=== PATIENT | female | born 1960 | race Caucasian/White ===

== ENCOUNTER 2019-08-15 07:48 | Inpatient (IN) | payer OTHER ==
[2019-08-08 12:37] LABS: BASOPHILS % (AUTO) 0.7 % (0.0-2.0); HEMATOCRIT 36.8 % (36-46); LYMPHOCYTES # (AUTO) 3.1 K/uL (1.0-4.8); LYMPHOCYTES % (AUTO) 45.5 % (22.0-44.0); MEAN CORPUSCULAR HGB CONC 32.7 G/dL (31.0-37.0); MEAN CORPUSCULAR VOLUME 79 fL (80-100); MONOCYTES # (AUTO) 0.4 K/uL (0.1-1.0); MONOCYTES % (AUTO) 6.2 % (2.0-9.0); NEUTROPHILS # (AUTO) 3.1 K/uL (1.8-7.7); NEUTROPHILS % (AUTO) 44.6 % (40.0-70.0); PLATELET COUNT (AUTO) 393 K/uL (150-450); RED BLOOD CELL COUNT(AUTO) 4.64 MIL/uL (4.00-5.20); RED CELL DISTRIBUTION WIDTH 14.5 % (11.5-14.5)
[2019-08-08 12:45] LABS: PROTHROMBIN TIME 9.7 SEC (9.4-11.6)
[2019-08-08 12:48] LABS: CALCIUM, TOTAL 8.9 mg/dL (8.8-10.5); CREATININE 1.02 mg/dL (0.60-1.30); POTASSIUM 3.1 mmol/L (3.5-5.1)
[2019-08-08 13:00] LABS: ALBUMIN 3.6 g/dL (3.4-5.0); BILIRUBIN,TOTAL 0.5 mg/dL (0.1-1.0); TOTAL PROTEIN, SERUM 7.2 g/dL (6.4-8.2)
[2019-08-08 13:51] LABS: HEMOGLOBIN A1C 6.9 % (4.5-6.2)
[~2019-08-15] VITALS: Ht 170.2 cm; Wt 101.4 kg
[~2019-08-15 07:48] MED LIST: ASPI81 PO; ATOR10TA84 PO; CETI10TA59 PO; DULO20CA30 PO; ESTR-95 PO; EXEN2AUT SQ; HYDR25TA PO; INSNOV SQ; INSNPH SQ; LISI-662 PO; METF500T20 PO; NITR0.4T52 SL; NORT25 PO; OXYB5 PO; PANT40TA25 PO; RINGERS SOLUTION,LACTATED 1,000 ML IV ONE; RIZA10TA27 PO; SUCR1TAB PO
[2019-08-15] MEDS ORDERED: RINGERS SOLUTION,LACTATED 1,000 ML IV ONE ×2 (08:00→11:09)
[2019-08-15 08:40] LABS: GLUCOMETER DEV NAME(LOC) SDS.; GLUCOSE,POINT OF CARE 123 MG/DL (70-110)
[2019-08-15] MEDS ORDERED: BACITRACIN 50,000 UNITS/VIAL ONE (09:19)
[2019-08-15] MEDS ORDERED: BUPIVACAINE HCL/PF 0.5% 30 ML VIAL ONE (09:19)
[2019-08-15] MEDS ORDERED: SODIUM CL IRRIG SOLN BAG 3,000 ML IRRIG ONE (09:19)
[2019-08-15] MEDS ORDERED: SODIUM CHLORIDE 0.9% 100 ML ONE (09:20)
[2019-08-15] MEDS ORDERED: TRANEXAMIC ACID 1,000 MG in DEXTROSE 5%-WATER 50 ML IV ONE (09:30)
[2019-08-15] MEDS ORDERED: BUPIVACAINE LIPOSOME/PF 1.3%-13.3MG/ML SUSPENSION 20 ML VIAL INJ ONE (09:30)
[2019-08-15] MEDS ORDERED: CELECOXIB 200 MG CAPSULE PO ONE (09:45)
[2019-08-15] MEDS ORDERED: CELECOXIB 200 MG CAPSULE ONE (09:49)
[2019-08-15] MEDS ORDERED: ONDANSETRON HCL 4 MG/2 ML VIAL IVP PRN ×2 (11:00→12:00)
[2019-08-15] MEDS ORDERED: MORPHINE SULFATE/PF 0.5 MG/ML 10 ML AMP IVP PRN (11:00)
[2019-08-15] MEDS ORDERED: CYCLOBENZAPRINE HCL 10 MG TABLET PO PRN (11:00)
[2019-08-15] MEDS ORDERED: SUGAMMADEX SODIUM 200 MG/2 ML VIAL IVP ONE (11:44)
[2019-08-15] MEDS ORDERED: DEXTROSE 5%-LACTATED RINGERS 1,000 ML IV SCH (11:56)
[2019-08-15] MEDS ORDERED: BACITRACIN 28.4 GM OINTMENT TP PRN (12:00)
[2019-08-15] MEDS ORDERED: DiphenhydrAMINE HCL 50 MG/ML VIAL IVP PRN (12:00)
[2019-08-15] MEDS ORDERED: BISACODYL 10 MG RECTAL RECTAL SUPPOSITORY PR PRN ×2 (12:00→20:45)
[2019-08-15] MEDS ORDERED: MAG HYDROX/AL HYDROX/SIMETH 30 ML SUSP UDCUP PO PRN (12:00)
[2019-08-15] MEDS ORDERED: BENZOCAINE/MENTHOL LOZENGE PO PRN (12:00)
[2019-08-15] MEDS ORDERED: HYDROmorphone 2 MG/ML SYRINGE IVP PRN (13:30)
[2019-08-15] MEDS ORDERED: FentaNYL CITRATE-PF 100 MCG/2 ML VIAL IVP PRN (13:30)
[2019-08-15] MEDS ORDERED: MEPERIDINE-PF 25 MG/ML VIAL IVP PRN (13:30)
[2019-08-15 15:48] VITALS: BP 140/92
[2019-08-15] MEDS: ACETAMINOPHEN 1000 MG/ISO-OSM 100 ML IV SCH ×2 (16:42→21:12)
[2019-08-15] MEDS: FERROUS SULFATE 325 MG EC TABLET PO SCH (18:36)
[2019-08-15] MEDS: CeFAZolin 1 GM/DEXTROSE 50 ML IV SCH (18:37)
[2019-08-15] MEDS ORDERED: SODIUM CHLORIDE 0.9% 500 ML IV ONE (18:44)
[2019-08-15 19:54] LABS: GLUCOMETER DEV NAME(LOC) 4E.2; GLUCOSE,POINT OF CARE 225 MG/DL (70-110)
[2019-08-15 19:54] LABS: GLUCOMETER DEV NAME(LOC) 4E.2; GLUCOSE,POINT OF CARE 184 MG/DL (70-110)
[2019-08-15] MEDS ORDERED: OXYGEN THERAPY IH SCH (20:00)
[2019-08-15 20:23] VITALS: BP 117/64
[2019-08-15] MEDS: FAMOTIDINE 20 MG TABLET PO SCH (20:24)
[2019-08-15] MEDS: CELECOXIB 200 MG CAPSULE PO SCH (20:25)
[2019-08-15] MEDS ORDERED: IPRATROPIUM BROMIDE 0.5 MG/2.5 ML NEB SOLUTION NEB PRN (20:45)
[2019-08-15] MEDS ORDERED: ALBUTEROL SULFATE 2.5 MG/0.5 ML NEB SOLUTION NEB PRN (20:45)
[2019-08-15] MEDS ORDERED: DEXTROSE 50%-WATER 25 GM/50 ML SYRINGE IVP PRN ×2 (20:45)
[2019-08-15] MEDS ORDERED: INSULIN LISPRO 100 UNITS/ML SQ PRN (20:45)
[2019-08-15] MEDS ORDERED: ZOLPIDEM TARTRATE 5 MG TABLET PO PRN (20:45)
[2019-08-15] MEDS ORDERED: NITROGLYCERIN 0.4 MG SUBLINGUAL TABLET #25 SL PRN (20:45)
[2019-08-15] MEDS ORDERED: MAGNESIUM HYDROXIDE SUSPENSION 30 ML UDCUP PO PRN (20:45)
[2019-08-15] MEDS: DOCUSATE SODIUM 100 MG CAPSULE PO SCH (21:00)
[2019-08-15] MEDS ORDERED: DOCUSATE SODIUM 100 MG CAPSULE PO SCH (21:00)
[2019-08-15] MEDS: INSULIN LISPRO 100 UNITS/ML SQ PRN (21:05)
[2019-08-15] MEDS: DULoxetine HCL 20 MG CAPSULE PO SCH (21:06)
[2019-08-15] MEDS: OXYBUTYNIN CHLORIDE 5 MG TABLET PO SCH (21:06)
[2019-08-15] MEDS: NORTRIPTYLINE HCL 25 MG CAPSULE PO SCH (21:06)
[2019-08-15] MEDS: SUCRALFATE 1 GM TABLET PO SCH (21:06)
[2019-08-15] MEDS: PANTOPRAZOLE SODIUM 40 MG DR TABLET PO SCH (21:09)
[2019-08-16] VITALS (7 sets, daily range): BP systolic 102–116; BP diastolic 58–67
[2019-08-16] MEDS ORDERED: HEPARIN SODIUM,PORCINE 5,000 UNITS/ML VIAL SQ SCH
[2019-08-16] MEDS: MORPHINE SULFATE 15 MG IR TABLET PO PRN ×4 (01:14→21:57)
[2019-08-16] MEDS: CeFAZolin 1 GM/DEXTROSE 50 ML IV SCH (03:43)
[2019-08-16] MEDS: ACETAMINOPHEN 1000 MG/ISO-OSM 100 ML IV SCH ×2 (04:31→09:16)
[2019-08-16] MEDS ORDERED: MORPHINE SULFATE 4 MG/ML SYRINGE IVP ONE (05:06)
[2019-08-16] MEDS ORDERED: LIDOCAINE/PF 2% 5 ML VIAL IM ONE (05:06)
[2019-08-16] MEDS ORDERED: MORPHINE SULFATE/PF 0.5 MG/ML 10 ML AMP IVP ONE (05:06)
[2019-08-16] MEDS ORDERED: ROCURONIUM BROMIDE 10 MG/ML 5 ML VIAL IVP ONE (05:06)
[2019-08-16] MEDS ORDERED: FentaNYL CITRATE-PF 250 MCG/5 ML VIAL IVP ONE (05:06)
[2019-08-16] MEDS ORDERED: ONDANSETRON HCL 4 MG/2 ML VIAL IVP ONE (05:06)
[2019-08-16] MEDS ORDERED: PROPOFOL 1% 20 ML VIAL IVP ONE (05:06)
[2019-08-16] MEDS ORDERED: SUCCINYLCHOLINE CHLORIDE 20 MG/ML 10 ML VIAL IVP ONE (05:06)
[2019-08-16] MEDS ORDERED: 0.9% SODIUM CHLORIDE 10 ML VIAL IVP ONE (05:06)
[2019-08-16] MEDS ORDERED: MIDAZOLAM HCL 2 MG/2 ML VIAL IVP ONE (05:06)
[2019-08-16] MEDS ORDERED: DEXAMETHASONE SOD PHOS 4 MG/ML VIAL IVP ONE (05:06)
[2019-08-16 06:24] LABS: BASOPHILS % (AUTO) 0.1 % (0.0-2.0); EOSINOPHILS % (AUTO) 0 % (1.0-6.0); HEMATOCRIT 29.4 % (36-46); HEMOGLOBIN 9.6 g/dL (12.0-16.0); LYMPHOCYTES # (AUTO) 1.7 K/uL (1.0-4.8); LYMPHOCYTES % (AUTO) 15.4 % (22.0-44.0); MEAN CORPUSCULAR HEMOGLOBIN 26.1 pg (26.0-34.0); MEAN CORPUSCULAR HGB CONC 32.7 G/dL (31.0-37.0); MEAN CORPUSCULAR VOLUME 80 fL (80-100); MONOCYTES # (AUTO) 0.8 K/uL (0.1-1.0); NEUTROPHILS # (AUTO) 8.7 K/uL (1.8-7.7); NEUTROPHILS % (AUTO) 77.5 % (40.0-70.0); PLATELET COUNT (AUTO) 362 K/uL (150-450); RED BLOOD CELL COUNT(AUTO) 3.68 MIL/uL (4.00-5.20); RED CELL DISTRIBUTION WIDTH 14.5 % (11.5-14.5)
[2019-08-16 06:40] LABS: ALBUMIN 2.9 g/dL (3.4-5.0); BILIRUBIN,TOTAL 0.4 mg/dL (0.1-1.0); CALCIUM, TOTAL 7.6 mg/dL (8.8-10.5); CREATININE 0.96 mg/dL (0.60-1.30); POTASSIUM 3.7 mmol/L (3.5-5.1); TOTAL PROTEIN, SERUM 6.1 g/dL (6.4-8.2)
[2019-08-16] MEDS ORDERED: CETIRIZINE HCL 10 MG TABLET PO SCH (09:00)
[2019-08-16] MEDS ORDERED: HYDROCHLOROTHIAZIDE 25 MG TABLET PO SCH (09:00)
[2019-08-16] MEDS: DULoxetine HCL 20 MG CAPSULE PO SCH ×2 (09:12→21:20)
[2019-08-16] MEDS: SUCRALFATE 1 GM TABLET PO SCH ×2 (09:13→21:18)
[2019-08-16] MEDS: ESTRADIOL 1 MG TABLET PO SCH (09:13)
[2019-08-16] MEDS: CELECOXIB 200 MG CAPSULE PO SCH ×2 (09:13→21:18)
[2019-08-16] MEDS: OXYBUTYNIN CHLORIDE 5 MG TABLET PO SCH ×2 (09:13→21:19)
[2019-08-16] MEDS: FERROUS SULFATE 325 MG EC TABLET PO SCH ×2 (09:14→17:17)
[2019-08-16] MEDS: DOCUSATE SODIUM 100 MG CAPSULE PO SCH ×2 (09:14→21:18)
[2019-08-16] MEDS: ATORVASTATIN CALCIUM 10 MG TABLET PO SCH (09:14)
[2019-08-16] MEDS: LISINOPRIL 20 MG TABLET PO SCH (09:14)
[2019-08-16] MEDS: FAMOTIDINE 20 MG TABLET PO SCH ×2 (09:14→21:20)
[2019-08-16] MEDS: MetFORMIN HCL 500 MG ER TABLET PO SCH ×2 (09:14→17:17)
[2019-08-16 09:40] LABS: CALCIUM, TOTAL 7.8 mg/dL (8.8-10.5); CREATININE 1.12 mg/dL (0.60-1.30); POTASSIUM 3.8 mmol/L (3.5-5.1)
[2019-08-16 11:16] LABS: GLUCOMETER DEV NAME(LOC) 4E.2; GLUCOSE,POINT OF CARE 295 MG/DL (70-110)
[2019-08-16 11:16] LABS: GLUCOMETER DEV NAME(LOC) 4E.2; GLUCOSE,POINT OF CARE 229 MG/DL (70-110)
[2019-08-16] MEDS: INSULIN LISPRO 100 UNITS/ML SQ PRN ×2 (12:26→17:17)
[2019-08-16] MEDS ORDERED: INSULIN NPH, HUMAN ISOPHANE 100 UNITS/ML SQ SCH ×2 (17:00→21:00)
[2019-08-16] MEDS: RIVAROXABAN 10 MG TABLET PO SCH (17:17)
[2019-08-16] MEDS: ONDANSETRON HCL 4 MG/2 ML VIAL IVP PRN (17:17)
[2019-08-16 17:48] LABS: GLUCOMETER DEV NAME(LOC) 6N.2; GLUCOSE,POINT OF CARE 212 MG/DL (70-110)
[2019-08-16 17:48] LABS: GLUCOMETER DEV NAME(LOC) 6N.2; GLUCOSE,POINT OF CARE 328 MG/DL (70-110)
[2019-08-16] MEDS: NORTRIPTYLINE HCL 25 MG CAPSULE PO SCH (21:20)
[2019-08-16] MEDS: PANTOPRAZOLE SODIUM 40 MG DR TABLET PO SCH (21:20)
[2019-08-17 05:32] LABS: GLUCOMETER DEV NAME(LOC) 4E.2; GLUCOSE,POINT OF CARE 215 MG/DL (70-110)
[2019-08-17 05:32] LABS: GLUCOMETER DEV NAME(LOC) 4E.2; GLUCOSE,POINT OF CARE 172 MG/DL (70-110)
[2019-08-17 05:33] VITALS: BP 106/55
[2019-08-17 07:34] VITALS: BP 108/65
[2019-08-17 08:33] LABS: BASOPHILS % (AUTO) 0.8 % (0.0-2.0); EOSINOPHILS % (AUTO) 2.3 % (1.0-6.0); HEMATOCRIT 32.4 % (36-46); HEMOGLOBIN 10.1 g/dL (12.0-16.0); LYMPHOCYTES # (AUTO) 4.5 K/uL (1.0-4.8); LYMPHOCYTES % (AUTO) 38.6 % (22.0-44.0); MEAN CORPUSCULAR HEMOGLOBIN 25.3 pg (26.0-34.0); MEAN CORPUSCULAR HGB CONC 31.2 G/dL (31.0-37.0); MEAN CORPUSCULAR VOLUME 81 fL (80-100); MONOCYTES # (AUTO) 0.8 K/uL (0.1-1.0); MONOCYTES % (AUTO) 6.6 % (2.0-9.0); NEUTROPHILS % (AUTO) 51.7 % (40.0-70.0); PLATELET COUNT (AUTO) 371 K/uL (150-450); RED BLOOD CELL COUNT(AUTO) 3.99 MIL/uL (4.00-5.20); RED CELL DISTRIBUTION WIDTH 15.1 % (11.5-14.5)
[2019-08-17 08:40] LABS: CALCIUM, TOTAL 8.4 mg/dL (8.8-10.5); CREATININE 0.99 mg/dL (0.60-1.30); POTASSIUM 3.8 mmol/L (3.5-5.1)
[2019-08-17 08:54] LABS: GLUCOMETER DEV NAME(LOC) 6N.2; GLUCOSE,POINT OF CARE 202 MG/DL (70-110)
[2019-08-17] MEDS: MetFORMIN HCL 500 MG ER TABLET PO SCH ×2 (09:03→16:04)
[2019-08-17] MEDS: CELECOXIB 200 MG CAPSULE PO SCH ×2 (09:03→20:12)
[2019-08-17] MEDS: FAMOTIDINE 20 MG TABLET PO SCH ×2 (09:03→20:16)
[2019-08-17] MEDS: ATORVASTATIN CALCIUM 10 MG TABLET PO SCH (09:03)
[2019-08-17] MEDS: ESTRADIOL 1 MG TABLET PO SCH (09:03)
[2019-08-17] MEDS: FERROUS SULFATE 325 MG EC TABLET PO SCH ×2 (09:04→16:04)
[2019-08-17] MEDS: LISINOPRIL 20 MG TABLET PO SCH (09:04)
[2019-08-17] MEDS: SUCRALFATE 1 GM TABLET PO SCH ×2 (09:04→20:12)
[2019-08-17] MEDS: DULoxetine HCL 20 MG CAPSULE PO SCH ×2 (09:04→20:15)
[2019-08-17] MEDS: DOCUSATE SODIUM 100 MG CAPSULE PO SCH ×2 (09:04→20:13)
[2019-08-17] MEDS: OXYBUTYNIN CHLORIDE 5 MG TABLET PO SCH ×2 (09:04→20:13)
[2019-08-17] MEDS: INSULIN NPH, HUMAN ISOPHANE 100 UNITS/ML SQ SCH (09:09)
[2019-08-17] MEDS: MORPHINE SULFATE 15 MG IR TABLET PO PRN (09:53)
[2019-08-17] MEDS: INSULIN LISPRO 100 UNITS/ML SQ PRN ×2 (10:58→16:12)
[2019-08-17] MEDS: ONDANSETRON HCL 4 MG/2 ML VIAL IVP PRN ×2 (11:01→16:25)
[2019-08-17 11:03] LABS: GLUCOMETER DEV NAME(LOC) 6N.2; GLUCOSE,POINT OF CARE 232 MG/DL (70-110)
[2019-08-17 15:10] VITALS: BP 113/66
[2019-08-17] MEDS: RIVAROXABAN 10 MG TABLET PO SCH (16:04)
[2019-08-17] MEDS ORDERED: ACETAMINOPHEN 325 MG TABLET PO PRN (16:45)
[2019-08-17 17:40] LABS: GLUCOMETER DEV NAME(LOC) 6N.2; GLUCOSE,POINT OF CARE 180 MG/DL (70-110)
[2019-08-17 20:03] VITALS: BP 118/57
[2019-08-17] MEDS: NORTRIPTYLINE HCL 25 MG CAPSULE PO SCH (20:13)
[2019-08-17] MEDS: PANTOPRAZOLE SODIUM 40 MG DR TABLET PO SCH (20:19)
[2019-08-17] MEDS ORDERED: INSULIN NPH, HUMAN ISOPHANE 100 UNITS/ML SQ SCH (21:00)
[2019-08-17 22:32] LABS: GLUCOMETER DEV NAME(LOC) 6N.2; GLUCOSE,POINT OF CARE 198 MG/DL (70-110)
[2019-08-18 00:10] VITALS: BP 108/58
[2019-08-18 04:00] VITALS: BP 123/71
[2019-08-18] MEDS: INSULIN NPH, HUMAN ISOPHANE 100 UNITS/ML SQ SCH (06:39)
[2019-08-18] MEDS: FERROUS SULFATE 325 MG EC TABLET PO SCH (08:00)
[2019-08-18] MEDS: MetFORMIN HCL 500 MG ER TABLET PO SCH (08:13)
[2019-08-18] MEDS: FAMOTIDINE 20 MG TABLET PO SCH (08:13)
[2019-08-18] MEDS: CELECOXIB 200 MG CAPSULE PO SCH (08:14)
[2019-08-18] MEDS: ESTRADIOL 1 MG TABLET PO SCH (08:14)
[2019-08-18] MEDS: OXYBUTYNIN CHLORIDE 5 MG TABLET PO SCH (08:14)
[2019-08-18] MEDS: DULoxetine HCL 20 MG CAPSULE PO SCH (08:14)
[2019-08-18] MEDS: LISINOPRIL 20 MG TABLET PO SCH (08:14)
[2019-08-18] MEDS: DOCUSATE SODIUM 100 MG CAPSULE PO SCH (08:14)
[2019-08-18] MEDS: SUCRALFATE 1 GM TABLET PO SCH (08:14)
[2019-08-18] MEDS: ATORVASTATIN CALCIUM 10 MG TABLET PO SCH (08:14)
[2019-08-18 08:29] VITALS: BP 131/72
[2019-08-18] MEDS: MORPHINE SULFATE 15 MG IR TABLET PO PRN ×2 (08:45→13:03)
[2019-08-18 09:52] LABS: BASOPHILS % (AUTO) 0.5 % (0.0-2.0); EOSINOPHILS % (AUTO) 3.7 % (1.0-6.0); HEMATOCRIT 28.3 % (36-46); HEMOGLOBIN 9.1 g/dL (12.0-16.0); LYMPHOCYTES # (AUTO) 2.3 K/uL (1.0-4.8); LYMPHOCYTES % (AUTO) 23.4 % (22.0-44.0); MEAN CORPUSCULAR HEMOGLOBIN 26.3 pg (26.0-34.0); MEAN CORPUSCULAR HGB CONC 32.3 G/dL (31.0-37.0); MEAN CORPUSCULAR VOLUME 81 fL (80-100); MONOCYTES # (AUTO) 0.6 K/uL (0.1-1.0); NEUTROPHILS # (AUTO) 6.5 K/uL (1.8-7.7); NEUTROPHILS % (AUTO) 66.4 % (40.0-70.0); PLATELET COUNT (AUTO) 326 K/uL (150-450); RED BLOOD CELL COUNT(AUTO) 3.48 MIL/uL (4.00-5.20); RED CELL DISTRIBUTION WIDTH 15.1 % (11.5-14.5)
[2019-08-18 11:06] VITALS: BP 115/57
[2019-08-18] MEDS: INSULIN LISPRO 100 UNITS/ML SQ PRN (11:39)
[2019-08-18] MEDS ORDERED: RIVA10 PO (11:55)
[2019-08-18] MEDS ORDERED: MORP15T PO (11:56)
[2019-08-18] MEDS ORDERED: TRAM50TA4 PO (11:58)
[2019-08-18 15:00] VITALS: BP 116/65
[2019-08-18 17:45] LABS: GLUCOMETER DEV NAME(LOC) 6N.2; GLUCOSE,POINT OF CARE 146 MG/DL (70-110)
[2019-08-18 22:14] LABS: GLUCOMETER DEV NAME(LOC) 4E.2; GLUCOSE,POINT OF CARE 149 MG/DL (70-110)
== END 2019-08-18 16:47 | disposition home or self-care (01) | DRG 302 ==
LOC: 4E 07:48
PROVIDERS: ADMIT Orthopaedic Surgery; ATTEND Orthopaedic Surgery
PROC: 0SRC0J9 Replacement of Right Knee Joint with Synthetic Substitute, Cemented, Open Approach (ICD-10-PCS; 2019-08-15)
PROC: 3E0T3BZ Introduction of Anesthetic Agent into Peripheral Nerves and Plexi, Percutaneous Approach (ICD-10-PCS; principal; 2019-08-15 10:00)
DX: M17.11 Unilateral primary osteoarthritis, right knee (principal); E11.40 Type 2 diabetes mellitus with diabetic neuropathy, unspecified; E11.65 Type 2 diabetes mellitus with hyperglycemia; E03.9 Hypothyroidism, unspecified; K21.9 Gastro-esophageal reflux disease without esophagitis; E78.5 Hyperlipidemia, unspecified; I10 Essential (primary) hypertension; N32.81 Overactive bladder; E78.00 Pure hypercholesterolemia, unspecified; F32.9 Major depressive disorder, single episode, unspecified; G43.909 Migraine, unspecified, not intractable, without status migrainosus; G89.29 Other chronic pain; Z79.4 Long term (current) use of insulin; Z87.891 Personal history of nicotine dependence; Z79.899 Other long term (current) drug therapy; Z88.0 Allergy status to penicillin; Z88.5 Allergy status to narcotic agent; Z88.1 Allergy status to other antibiotic agents; Z88.8 Allergy status to other drugs, medicaments and biological substances; Z88.6 Allergy status to analgesic agent
CPT/HCPCS: 83036; 87081; 88300; 93005; 97110; 97116; 97162; 97165; 97530; 97535; C9290; G0238; G0378; J0131; J0330; J0690; J1100; J1815; J2250; J2270; J2274; J2405; J2704; J3010; J3490; J7040; J7050; J7060; J7120